=== PATIENT | male | born 1935 | race Caucasian/White ===

== ENCOUNTER 2017-07-27 07:17 | Emergency (ER) | payer OTHER ==
[~2017-07-27] VITALS: Ht 180.3 cm; Wt 84.4 kg
[2017-07-27] MEDS ORDERED: LASIX40 MG (07:28)
[2017-07-27] MEDS ORDERED: NORVASC5 MG (07:28)
== END 2017-07-27 12:58 | disposition home or self-care (01) ==
LOC: ER 07:17
DX: I10 Essential (primary) hypertension (principal); R04.0 Epistaxis